=== PATIENT | female | born 1950 | race Caucasian/White ===

== ENCOUNTER 2016-08-09 22:54 | Observation (INO) | payer OTHER ==
[~2016-08-09] VITALS: Ht 157.5 cm; Wt 46.0 kg
[~2016-08-09 22:54] MED LIST: ADVAIR 250/501 DISK IH; ADVAIR HFA120 INHAL1 IH; ADVIL,NUPRIN,M200 MG PO; ADVIL200 M3 PO; AMOXICILLIN500 MG PO; AUGMENTIN875 MG PO; AZITHROMYCIN250 MG PO; Advair HFA 115/21 IH; BACTRIM,SEPT1 TABLET PO; CEFDINIR300 MG PO; COUGH MED; CYANOCOBALAM1000 MCG PO; DELTASONE20 M1 PO; DUONEB 2.5-0.5 M3 ML IH; DUREZOL 0.100 DROP/5 RIGHT EYE; ILEVRO1.7 ML RIGHT EYE; LEVAQUIN250 MG PO; LEVAQUIN500 MG PO; LEVOFLOXACIN750 MG PO; LOPRESSOR25 MG PO; Levaquin PO; MARTINIC1 EACH PO; METOPROLOL TART25 MG PO; MUCINEX1200 MG PO; MUCINEX600 MG PO; PREDNISONE10 MG PO; PREDNISONE20 MG PO; PREDNISONE50 MG PO; PROVENTIL HFA6.7 GM IH; PROVENTIL,2.5 MG/3 M IH; PROVENTIL17 GM IH; SPIRIVA RESPIMAT4 G1 IH; SPIRIVA RESPIMAT4 GM IH; SPIRIVA1 INHALATI IH; SYMBICORT60 INHALAT IH; THEOCHRON200 MG PO; Tums PO; VENTOLIN HFA18 GM IH; VITAMIN B12-FO1 EACH PO; VITAMIN D1000 INTUN PO; VITAMIN D2000 UNIT PO; VITAMIN D31000 UNIT PO; ZITHROMAX Z-PA250 MG PO; predniSONE PO
[2016-08-09 23:28] LABS: HEMATOCRIT 45.2 % (36.0-46.0); MCH 31.5 PG (29.0-34.0); MCV 95.6 FL (83-99); MEAN PLAT.VOLUME 9.7 uM^3 (9.5-12.4); PLATELET COUNT 187 K/uL (156-360); RBC DIS.WIDTH-CV 12.3 % (11.8-14.6); RED BLOOD COUNT 4.73 M/uL (3.80-5.20); WHITE BLOOD COUNT 12.1 K/uL (4.1-10.2)
[2016-08-09 23:46] LABS: CHLORIDE 105 mEq/L (99-109); POTASSIUM 4.1 mEq/L (3.7-5.4); SODIUM 143 mEq/L (136-147)
[2016-08-09 23:47] LABS: GLUCOSE 97 mg/dL (70-99)
[2016-08-09 23:49] LABS: ANION GAP 12 MEQ/L (2-14)
[2016-08-09 23:51] LABS: GFR ESTIMATE (CALCULATED) > 59 mL/min/; TROP-I INTERPRETATION NEGATIVE; TROPONIN-I 0.03 ng/mL (0.0-0.30)
[2016-08-09 23:52] LABS: UREA NITROGEN (BUN) 14 mg/dL (9-23)
[2016-08-10 00:03] LABS: BASE EXCESS 0.6 mEq/L (-3 to +3); BICARBONATE 27.8 mEq/L (22-26); CARBOXY HGB 1.9 % (0-5); METHEMOGLOBIN 1.1 % (0-1.5); PCO2 54 mm Hg (35-45); PO2 207 mm Hg (80-100); pH 7.32 (7.35-7.45)
[2016-08-10 00:04] LABS: COMMENTS - BLOOD GASES C+A+; DEVICE VENTILATOR; FI02 50 %; MODE SPONT-NIV; PEEP 5 CM/H20; PRES. SUPPORT 10 CM/H2O; SITE LR; TOTAL RESP RATE 14 resp/min
[2016-08-10 04:50] VITALS: BP 111/65
[2016-08-10 08:15] VITALS: BP 106/60
[2016-08-10] MEDS ORDERED: ADVAIR 250/501 DISK IH (09:19)
[2016-08-10 11:45] VITALS: BP 133/63
[2016-08-10 16:45] VITALS: BP 113/61
[2016-08-10 19:43] VITALS: BP 130/62
[2016-08-10 23:24] VITALS: BP 132/67
[2016-08-11 04:41] VITALS: BP 91/51
[2016-08-11 07:45] VITALS: BP 108/68
[2016-08-11 11:48] VITALS: BP 118/58
[2016-08-11] MEDS ORDERED: PREDNISONE10 MG PO (12:11)
[2016-08-11] MEDS ORDERED: AZITHROMYCIN500 M1 PO (12:11)
[2016-08-11] MEDS ORDERED: LEVAQUIN750 MG PO (12:11)
== END 2016-08-11 14:21 | disposition home or self-care (01) ==
LOC: EME 22:54 → EDOF 08-10 03:32 → 4EAST 08-10 03:32 → 5SOUTH 08-10 03:32 → 4EAST 08-10 04:41 → 5SOUTH 08-10 19:19
PROVIDERS: Emergency Medicine
PROC: 5A09357 Assistance with Respiratory Ventilation, Less than 24 Consecutive Hours, Continuous Positive Airway Pressure (ICD-10-PCS; principal; 2016-08-10)
DX: J96.21 Acute and chronic respiratory failure with hypoxia (principal); J44.1 Chronic obstructive pulmonary disease with (acute) exacerbation; J44.0 Chronic obstructive pulmonary disease with (acute) lower respiratory infection; J18.9 Pneumonia, unspecified organism; J20.9 Acute bronchitis, unspecified; Z99.81 Dependence on supplemental oxygen; R00.0 Tachycardia, unspecified; D69.6 Thrombocytopenia, unspecified; Z87.891 Personal history of nicotine dependence
CPT/HCPCS: 36600; 71010; 71275; 80048; 82803; 84484; 85027; 87040; 87070; 87205; 93005; 94002; 94640; 94640 76; 94799; 99202; 99281; 99285; G0378; J0696; J1644; J2930; J7050; J7644

== ENCOUNTER 2017-01-06 23:25 | Emergency (ER) | payer OTHER ==
[~2017-01-06] VITALS: Ht 157.5 cm; Wt 40.7 kg
[~2017-01-06 23:25] MED LIST changes: +AZITHROMYCIN500 M1 PO; +LEVAQUIN750 MG PO
[2017-01-07 00:12] LABS: EOSINOPHIL (%) 8.6 % (0-5); EOSINOPHIL COUNT 0.4 K/uL (0-0.3); IMMATURE GRANULOCYTE (%) 0.4 % (0.0-0.7); INSTRUMENT ABS NEUTROPHIL CT 3.2 K/uL; MCH 28.3 PG (29.0-34.0); MCHC 32.8 G/DL (30.0-36.0); MCV 86.3 FL (83-99); MEAN PLAT.VOLUME 10.3 uM^3 (9.5-12.4); MONOCYTE (%) 9.2 % (3-12); MONOCYTE COUNT 0.5 K/uL (0-0.8); NEUTROPHIL (%) 61.5 % (45-76); NEUTROPHIL COUNT 3.2 K/uL (1.8-6.4); PLATELET COUNT 157 K/uL (156-360); RBC DIS.WIDTH-CV 11.6 % (11.8-14.6); RBC DIS.WIDTH-SD 36.7 % (39-53); RED BLOOD COUNT 4.98 M/uL (3.80-5.20); WHITE BLOOD COUNT 5.1 K/uL (4.1-10.2)
[2017-01-07 00:17] LABS: INTER. NORMALIZED RATIO 1.1; PROTHROMBIN TIME 12.3 SEC (10.2-12.9)
[2017-01-07 00:20] LABS: PTT 29.3 SEC (25-37)
[2017-01-07 00:25] LABS: CHLORIDE 100 mEq/L (99-109); POTASSIUM 4.2 mEq/L (3.7-5.4); SODIUM 142 mEq/L (136-147)
[2017-01-07 00:27] LABS: GLUCOSE 99 mg/dL (70-99)
[2017-01-07 00:28] LABS: ANION GAP 10 MEQ/L (2-14)
[2017-01-07 00:31] LABS: GFR ESTIMATE (CALCULATED) > 59 mL/min/
[2017-01-07 00:32] LABS: TROP-I INTERPRETATION NEGATIVE; TROPONIN-I < 0.01 ng/mL (0.0-0.30); UREA NITROGEN (BUN) 8 mg/dL (9-23)
[2017-01-07] MEDS ORDERED: ZITHROMAX Z-PA250 MG PO (02:30)
[2017-01-07] MEDS ORDERED: PREDNISONE20 MG PO (02:30)
[2017-01-07] MEDS ORDERED: ALBUTEROL2.5 MG/3 M IH (02:30)
[2017-01-07] MEDS ORDERED: VENTOLIN HFA18 GM IH (02:30)
[2017-01-07 03:13] VITALS: BP 102/61
== END 2017-01-07 03:18 | disposition home or self-care (01) ==
LOC: EME → EDBD 23:25 → EME 23:25
PROVIDERS: Emergency Medicine
DX: J44.1 Chronic obstructive pulmonary disease with (acute) exacerbation (principal); Z99.81 Dependence on supplemental oxygen; Z87.01 Personal history of pneumonia (recurrent); Z87.891 Personal history of nicotine dependence
CPT/HCPCS: 71020; 80048; 84484; 85025; 85610; 85730; 93005; 94640; 99281; 99284; J2930; J7644

== ENCOUNTER 2017-01-12 12:42 | Inpatient (IN) | payer OTHER ==
[~2017-01-12] VITALS: Ht 157.5 cm; Wt 39.1 kg
[~2017-01-12 12:42] MED LIST changes: +ALBUTEROL2.5 MG/3 M IH
[2017-01-12 14:27] LABS: HEMATOCRIT 44.2 % (36.0-46.0); MCH 28.2 PG (29.0-34.0); MCHC 31.4 G/DL (30.0-36.0); MCV 89.7 FL (83-99); MEAN PLAT.VOLUME 9.6 uM^3 (9.5-12.4); PLATELET COUNT 173 K/uL (156-360); RBC DIS.WIDTH-CV 12.3 % (11.8-14.6); RBC DIS.WIDTH-SD 40.5 % (39-53); RED BLOOD COUNT 4.93 M/uL (3.80-5.20)
[2017-01-12 14:33] LABS: PROTHROMBIN TIME 11.1 SEC (10.2-12.9)
[2017-01-12 14:34] LABS: CHLORIDE 102 mEq/L (99-109); POTASSIUM 3.8 mEq/L (3.7-5.4); SODIUM 144 mEq/L (136-147)
[2017-01-12 14:36] LABS: GLUCOSE 90 mg/dL (70-99); PTT 27.1 SEC (25-37)
[2017-01-12 14:38] LABS: ANION GAP 7 MEQ/L (2-14)
[2017-01-12 14:40] LABS: GFR ESTIMATE (CALCULATED) > 59 mL/min/
[2017-01-12 14:41] LABS: UREA NITROGEN (BUN) 11 mg/dL (9-23)
[2017-01-12 14:47] LABS: TROP-I INTERPRETATION NEGATIVE; TROPONIN-I 0.03 ng/mL (0.0-0.30)
[2017-01-12 15:18] LABS: CARBON DIOXIDE (BICARBONATE) 37.7 MEQ/L (20-31)
[2017-01-12] MEDS ORDERED: SPIRIVA18 MCG IH (19:48)
[2017-01-12] MEDS ORDERED: PREDNISONE10 MG PO (19:49)
[2017-01-12] MEDS ORDERED: AZITHROMYCIN250 MG PO (19:50)
[2017-01-12 21:08] LABS: D-DIMER ELISA < 150.00 ng/mLDDU (<230)
[2017-01-12 21:15] VITALS: BP 120/76
[2017-01-12 21:39] VITALS: BP 120/76
[2017-01-12 23:30] VITALS: BP 120/76
[2017-01-13 03:26] VITALS: BP 99/61
[2017-01-13 07:07] LABS: HEMATOCRIT 42.3 % (36.0-46.0); MCH 29.7 PG (29.0-34.0); MCHC 33.6 G/DL (30.0-36.0); MCV 88.5 FL (83-99); PLATELET COUNT 152 K/uL (156-360); RBC DIS.WIDTH-CV 12.1 % (11.8-14.6); RBC DIS.WIDTH-SD 39.3 % (39-53); RED BLOOD COUNT 4.78 M/uL (3.80-5.20); WHITE BLOOD COUNT 3.4 K/uL (4.1-10.2)
[2017-01-13 07:30] VITALS: BP 120/71
[2017-01-13 07:36] LABS: ANION GAP 9 MEQ/L (2-14); CHLORIDE 99 MEQ/L (99-109); GFR ESTIMATE (CALCULATED) > 59 mL/min/; GLUCOSE 128 mg/dL (70-99); SAMPLE HEMOLYSIS CHECK 0; SAMPLE ICTERIC CHECK 0; SAMPLE LIPEMIA CHECK 0; SODIUM 140 MEQ/L (136-147); UREA NITROGEN (BUN) 17 mg/dL (9-23)
[2017-01-13 07:37] LABS: POTASSIUM 4.9 MEQ/L (3.7-5.4)
[2017-01-13 11:09] VITALS: BP 103/65
[2017-01-13 15:10] VITALS: BP 107/61
[2017-01-13 20:15] VITALS: BP 101/63
[2017-01-14 00:25] VITALS: BP 114/58
[2017-01-14 04:24] VITALS: BP 129/79
[2017-01-14 08:16] VITALS: BP 104/54
[2017-01-14] MEDS ORDERED: BENZONATATE100 MG PO (09:42)
[2017-01-14] MEDS ORDERED: PREDNISONE20 MG PO (09:43)
== END 2017-01-14 12:27 | disposition home or self-care (01) | DRG 189 ==
LOC: EME 12:42 → EDOF 20:22 → 3EAST 20:22 → ENRESERV 20:27 → 3EAST 21:11
PROVIDERS: Emergency Medicine; Hospitalist
PROC: 5A09357 Assistance with Respiratory Ventilation, Less than 24 Consecutive Hours, Continuous Positive Airway Pressure (ICD-10-PCS; principal; 2017-01-12)
DX: J96.22 Acute and chronic respiratory failure with hypercapnia (principal); J96.21 Acute and chronic respiratory failure with hypoxia; J44.1 Chronic obstructive pulmonary disease with (acute) exacerbation; J44.0 Chronic obstructive pulmonary disease with (acute) lower respiratory infection; Z99.81 Dependence on supplemental oxygen; J18.9 Pneumonia, unspecified organism; J20.9 Acute bronchitis, unspecified; Z87.891 Personal history of nicotine dependence; D69.6 Thrombocytopenia, unspecified; Z87.01 Personal history of pneumonia (recurrent)
CPT/HCPCS: 71020; 80048; 82803; 84484; 85027; 85379; 85610; 85730; 87070; 87205; 93005; 94002; 94640; 94640 76; 94644; 94799; 99202; 99281; 99285; J1644; J2920; J2930

== ENCOUNTER 2017-02-03 21:45 | Emergency (ER) | payer OTHER ==
[~2017-02-03] VITALS: Ht 157.5 cm; Wt 40.1 kg
[~2017-02-03 21:45] MED LIST changes: +BENZONATATE100 MG PO; +SPIRIVA18 MCG IH
[2017-02-03 22:20] LABS: HEMATOCRIT 42.2 % (36.0-46.0); MCH 29.1 PG (29.0-34.0); MCHC 32.2 G/DL (30.0-36.0); MCV 90.2 FL (83-99); MEAN PLAT.VOLUME 9.2 uM^3 (9.5-12.4); RBC DIS.WIDTH-CV 12.3 % (11.8-14.6); RBC DIS.WIDTH-SD 40.7 % (39-53); RED BLOOD COUNT 4.68 M/uL (3.80-5.20); WHITE BLOOD COUNT 5.4 K/uL (4.1-10.2)
[2017-02-03 22:21] LABS: PLATELET COUNT 204 K/uL (156-360)
[2017-02-03 22:34] LABS: CHLORIDE 101 mEq/L (99-109); POTASSIUM 3.9 mEq/L (3.7-5.4); SODIUM 142 mEq/L (136-147)
[2017-02-03 22:36] LABS: GLUCOSE 117 mg/dL (70-99)
[2017-02-03 22:37] LABS: ANION GAP 6 MEQ/L (2-14)
[2017-02-03 22:40] LABS: GFR ESTIMATE (CALCULATED) > 59 mL/min/
[2017-02-03 22:41] LABS: UREA NITROGEN (BUN) 9 mg/dL (9-23)
[2017-02-03] MEDS ORDERED: PREDNISONE50 MG PO (23:24)
[2017-02-04 00:12] VITALS: BP 101/73
== END 2017-02-04 00:13 | disposition home or self-care (01) ==
LOC: EME 21:45
PROVIDERS: Emergency Medicine
DX: J44.9 Chronic obstructive pulmonary disease, unspecified (principal); R51 Headache; Z87.891 Personal history of nicotine dependence
CPT/HCPCS: 71020; 80048; 85027; 94640; 99281; 99285; J7512; J7644

== ENCOUNTER 2017-05-11 11:26 | Inpatient (IN) | payer OTHER ==
[~2017-05-11] VITALS: Ht 157.5 cm; Wt 46.5 kg
[2017-05-11 13:14] LABS: CHLORIDE 98 mEq/L (99-109); EOSINOPHIL (%) 1.5 % (0-5); EOSINOPHIL COUNT 0.2 K/uL (0-0.3); HEMATOCRIT 44.6 % (36.0-46.0); IMMATURE GRANULOCYTE (%) 0.4 % (0.0-0.7); IMMATURE GRANULOCYTE COUNT 0.1 K/uL; INSTRUMENT ABS NEUTROPHIL CT 11.3 K/uL; LYMPHOCYTE COUNT 0.6 K/uL (1.0-2.8); MCH 29.9 PG (29.0-34.0); MCV 90.8 FL (83-99); MEAN PLAT.VOLUME 9.7 uM^3 (9.5-12.4); MONOCYTE (%) 5.6 % (3-12); MONOCYTE COUNT 0.7 K/uL (0-0.8); NEUTROPHIL (%) 87.4 % (45-76); NEUTROPHIL COUNT 11.3 K/uL (1.8-6.4); PLATELET COUNT 264 K/uL (156-360); POTASSIUM 4.1 mEq/L (3.7-5.4); RBC DIS.WIDTH-CV 11.6 % (11.8-14.6); RBC DIS.WIDTH-SD 38.6 % (39-53); RED BLOOD COUNT 4.91 M/uL (3.80-5.20); SODIUM 142 mEq/L (136-147); WHITE BLOOD COUNT 12.9 K/uL (4.1-10.2)
[2017-05-11 13:16] LABS: GLUCOSE 116 mg/dL (70-99)
[2017-05-11 13:17] LABS: ANION GAP 12 MEQ/L (2-14)
[2017-05-11 13:20] LABS: GFR ESTIMATE (CALCULATED) > 59 mL/min/
[2017-05-11 13:21] LABS: INTER. NORMALIZED RATIO 1.1; PROTHROMBIN TIME 12.9 SEC (10.2-12.9); UREA NITROGEN (BUN) 12 mg/dL (9-23)
[2017-05-11] MEDS ORDERED: ADVIL,NUPRIN,M200 MG PO (15:20)
[2017-05-11 22:28] VITALS: BP 85/53
[2017-05-11 23:11] VITALS: BP 85/53
[2017-05-11 23:27] VITALS: BP 84/51
[2017-05-12 03:27] VITALS: BP 92/55
[2017-05-12 07:43] LABS: ANION GAP 8 MEQ/L (2-14); CHLORIDE 100 MEQ/L (99-109); GFR ESTIMATE (CALCULATED) > 59 mL/min/; GLUCOSE 97 mg/dL (70-99); POTASSIUM 4.2 MEQ/L (3.7-5.4); SAMPLE HEMOLYSIS CHECK 0; SAMPLE ICTERIC CHECK 0; SAMPLE LIPEMIA CHECK 0; SODIUM 141 MEQ/L (136-147); UREA NITROGEN (BUN) 13 mg/dL (9-23)
[2017-05-12 07:59] LABS: HEMATOCRIT 36.9 % (36.0-46.0); MCV 93.9 FL (83-99)
[2017-05-12 08:22] VITALS: BP 88/44
[2017-05-12 12:11] VITALS: BP 102/59
[2017-05-12 15:51] VITALS: BP 101/55
[2017-05-12 20:00] VITALS: BP 98/58
[2017-05-13] VITALS (7 sets, daily range): BP systolic 98–112; BP diastolic 55–61
[2017-05-13 07:59] LABS: HEMATOCRIT 34.7 % (36.0-46.0); MCH 29.2 PG (29.0-34.0); MCHC 31.4 G/DL (30.0-36.0); RBC DIS.WIDTH-CV 11.9 % (11.8-14.6); RBC DIS.WIDTH-SD 39.8 % (39-53); WHITE BLOOD COUNT 10.1 K/uL (4.1-10.2)
[2017-05-13 08:01] LABS: RED BLOOD COUNT 3.73 M/uL (3.80-5.20)
[2017-05-13 08:13] LABS: MEAN PLAT.VOLUME 9.9 uM^3 (9.5-12.4); PLAT.SUFFICIENCY ADEQUATE
[2017-05-13 08:22] LABS: PLATELET COUNT 182 K/uL (156-360)
[2017-05-14 04:48] VITALS: BP 120/70
[2017-05-14 05:55] LABS: HEMATOCRIT 32.4 % (36.0-46.0); MCH 29.9 PG (29.0-34.0); MCHC 32.7 G/DL (30.0-36.0); MCV 91.3 FL (83-99); MEAN PLAT.VOLUME 10.2 uM^3 (9.5-12.4); PLATELET COUNT 205 K/uL (156-360); RBC DIS.WIDTH-CV 11.9 % (11.8-14.6); RBC DIS.WIDTH-SD 39.8 % (39-53); RED BLOOD COUNT 3.55 M/uL (3.80-5.20); WHITE BLOOD COUNT 9.3 K/uL (4.1-10.2)
[2017-05-14 06:28] LABS: ANION GAP 6 MEQ/L (2-14); CHLORIDE 97 MEQ/L (99-109); GFR ESTIMATE (CALCULATED) > 59 mL/min/; GLUCOSE 94 mg/dL (70-99); POTASSIUM 3.4 MEQ/L (3.7-5.4); SAMPLE HEMOLYSIS CHECK 0; SAMPLE ICTERIC CHECK 0; SAMPLE LIPEMIA CHECK 0; SODIUM 141 MEQ/L (136-147); UREA NITROGEN (BUN) 11 mg/dL (9-23)
[2017-05-14 09:13] VITALS: BP 142/62
[2017-05-14] MEDS ORDERED: FAMOTIDINE20 MG PO (11:47)
[2017-05-14] MEDS ORDERED: SENNA PLUS TAB1 EACH PO (11:47)
[2017-05-14] MEDS ORDERED: THERAGRAN1 TABLET PO (11:48)
[2017-05-14] MEDS ORDERED: BISAC-EVAC10 MG PR (11:49)
[2017-05-14 11:57] VITALS: BP 105/62
[2017-05-14] MEDS ORDERED: HYDROCODON-ACE1 EAC7 PO (12:10)
[2017-05-14 16:40] VITALS: BP 94/61
[2017-05-14 20:11] VITALS: BP 141/96
[2017-05-14 23:07] VITALS: BP 112/57
[2017-05-15 04:16] VITALS: BP 109/67
[2017-05-15 07:43] VITALS: BP 97/71
[2017-05-15 11:48] VITALS: BP 109/61
[2017-05-15 16:23] VITALS: BP 119/64
[2017-05-15 19:47] VITALS: BP 105/66
[2017-05-16 00:12] VITALS: BP 107/67
[2017-05-16 04:13] VITALS: BP 108/61
[2017-05-16 07:17] LABS: ANION GAP 7 MEQ/L (2-14); CHLORIDE 101 MEQ/L (99-109); GFR ESTIMATE (CALCULATED) > 59 mL/min/; GLUCOSE 110 mg/dL (70-99); SAMPLE HEMOLYSIS CHECK 1; SAMPLE ICTERIC CHECK 0; SAMPLE LIPEMIA CHECK 0; SODIUM 139 MEQ/L (136-147); UREA NITROGEN (BUN) 14 mg/dL (9-23)
[2017-05-16 07:19] LABS: POTASSIUM 5.2 MEQ/L (3.7-5.4)
[2017-05-16 08:29] VITALS: BP 121/64
[2017-05-16] MEDS ORDERED: DUONEB 2.5-0.5 M3 ML AEROSOL (10:59)
[2017-05-16] MEDS ORDERED: PREDNISONE20 MG PO (11:02)
[2017-05-16] MEDS ORDERED: HYDROCODON-ACE1 EAC7 PO (11:05)
[2017-05-16] MEDS ORDERED: LOVENOX40 MG/0.4 SC (11:12)
[2017-05-16 12:14] VITALS: BP 109/64
== END 2017-05-16 12:44 | DRG 469 ==
LOC: EME 11:26 → EDOF 16:04 → 3EAST 16:04 → ENRESERV 16:05 → 3EAST 22:17
PROVIDERS: Emergency Medicine; Hospitalist; Nurse Practitioner Adult Health; Orthopaedic Surgery
PROC: 0SRS0JZ Replacement of Left Hip Joint, Femoral Surface with Synthetic Substitute, Open Approach (ICD-10-PCS; principal; 2017-05-11)
DX: S72.002A Fracture of unspecified part of neck of left femur, initial encounter for closed fracture (principal); W01.0XXA Fall on same level from slipping, tripping and stumbling without subsequent striking against object, initial encounter; J96.21 Acute and chronic respiratory failure with hypoxia; J44.1 Chronic obstructive pulmonary disease with (acute) exacerbation; J98.11 Atelectasis; D64.9 Anemia, unspecified; R26.2 Difficulty in walking, not elsewhere classified; Z99.81 Dependence on supplemental oxygen; Z87.891 Personal history of nicotine dependence
CPT/HCPCS: 71010; 73501; 73502; 80048; 82272; 85014; 85018; 85025; 85027; 85610; 90686; 93005; 94640; 94640 76; 94760; 94799; 97530 GO; 97530 GP; 99202; 99281; 99285; J0131; J0690; J1170; J1650; J2250; J2270; J2405; J2930; S0028

== ENCOUNTER 2017-07-19 19:59 | Inpatient (IN) | payer OTHER ==
[~2017-07-19] VITALS: Ht 160 cm; Wt 37.3 kg
[~2017-07-19 19:59] MED LIST changes: +BISAC-EVAC10 MG PR; +DUONEB 2.5-0.5 M3 ML AEROSOL; +FAMOTIDINE20 MG PO; +HYDROCODON-ACE1 EAC7 PO; +LOVENOX40 MG/0.4 SC; +SENNA PLUS TAB1 EACH PO; -SPIRIVA18 MCG IH; +THERAGRAN1 TABLET PO
[2017-07-19 21:00] LABS: HEMATOCRIT 43.1 % (36.0-46.0); HEMOGLOBIN 14.1 G/DL (11.9-15.5); MCH 30.3 PG (29.0-34.0); MCHC 32.7 G/DL (30.0-36.0); MCV 92.5 FL (83-99); PLATELET COUNT 274 K/uL (156-360); RBC DIS.WIDTH-CV 12.3 % (11.8-14.6); RBC DIS.WIDTH-SD 41.9 % (39-53); RED BLOOD COUNT 4.66 M/uL (3.80-5.20); WHITE BLOOD COUNT 18.4 K/uL (4.1-10.2)
[2017-07-19 21:03] LABS: BASE EXCESS 8.1 mEq/L (-3 to +3); BICARBONATE 34.7 mEq/L (22-26); CARBOXY HGB 2.4 % (0-5); COMMENTS - BLOOD GASES A+C+; DEVICE VM; FI02 50 %; METHEMOGLOBIN 1.2 % (0-1.5); O2 FLOW 12 L/MIN; PCO2 56 mm Hg (35-45); PO2 74 mm Hg (80-100); SITE RR; TOTAL RESP RATE 25 resp/min
[2017-07-19 21:16] LABS: CHLORIDE 98 MEQ/L (99-109); POTASSIUM 4.4 MEQ/L (3.7-5.4); SODIUM 140 MEQ/L (136-147)
[2017-07-19 21:22] LABS: CREATININE 0.6 MG/DL (0.6-1.3); GFR ESTIMATE (CALCULATED) > 59 mL/min/; GLUCOSE 115 mg/dL (70-99); UREA NITROGEN (BUN) 11 mg/dL (9-23)
[2017-07-19 21:22] LABS: BASOPHIL (%) 0.2 % (0-1); EOSINOPHIL (%) 0 % (0-5); HEMATOCRIT 41.3 % (36.0-46.0); HEMOGLOBIN 13.5 G/DL (11.9-15.5); IMMATURE GRANULOCYTE (%) 0.5 % (0.0-0.7); LYMPHOCYTE (%) 2.9 % (15-42); LYMPHOCYTE COUNT 0.5 K/uL (1.0-2.8); MCHC 32.7 G/DL (30.0-36.0); MCV 91.8 FL (83-99); MONOCYTE (%) 5.4 % (3-12); NEUTROPHIL COUNT 16.2 K/uL (1.8-6.4); PLATELET COUNT 261 K/uL (156-360); RBC DIS.WIDTH-CV 12.4 % (11.8-14.6); RBC DIS.WIDTH-SD 41.9 % (39-53); WHITE BLOOD COUNT 17.7 K/uL (4.1-10.2)
[2017-07-19 21:44] LABS: ALBUMIN 3.5 G/DL (3.2-4.8); DIRECT BILIRUBIN 0.1 mg/dL (0.0-0.3); TOTAL BILIRUBIN 0.4 MG/DL (0.0-1.0)
[2017-07-19 22:19] LABS: ALKALINE PHOSPHATASE 73 IU/L (3-129); ALT (GPT) 9 IU/L (3-49); AST (GOT) 13 IU/L (2-34); LIPASE < 3.0 U/L (1.0-51.0); TOTAL PROTEIN 6.9 G/DL (6.4-8.3)
[2017-07-20] VITALS (7 sets, daily range): BP systolic 101–114; BP diastolic 57–64
[2017-07-20] MEDS ORDERED: MULTI COMPLETE1 EACH PO (00:23)
[2017-07-20] MEDS ORDERED: VENTOLIN HFA18 GM IH (00:23)
[2017-07-20 05:59] LABS: HEMATOCRIT 39.3 % (36.0-46.0); HEMOGLOBIN 12.5 G/DL (11.9-15.5); MCH 29.1 PG (29.0-34.0); MCHC 31.8 G/DL (30.0-36.0); MCV 91.4 FL (83-99); PLATELET COUNT 251 K/uL (156-360); RBC DIS.WIDTH-CV 12.5 % (11.8-14.6); RBC DIS.WIDTH-SD 41.7 % (39-53); WHITE BLOOD COUNT 21.3 K/uL (4.1-10.2)
[2017-07-20 06:24] LABS: ALBUMIN 3.3 G/DL (3.2-4.8); ALKALINE PHOSPHATASE 61 IU/L (3-129); ALT (GPT) 8 IU/L (3-49); AST (GOT) 14 IU/L (2-34); CHLORIDE 101 MEQ/L (99-109); CREATININE 0.6 MG/DL (0.6-1.3); GFR ESTIMATE (CALCULATED) > 59 mL/min/; GLUCOSE 141 mg/dL (70-99); POTASSIUM 4.8 MEQ/L (3.7-5.4); SODIUM 140 MEQ/L (136-147); TOTAL BILIRUBIN 0.4 MG/DL (0.0-1.0); TOTAL PROTEIN 6.4 G/DL (6.4-8.3); UREA NITROGEN (BUN) 11 mg/dL (9-23)
[2017-07-20 15:28] LABS: APPEARANCE CLEAR ((CLEAR)); BILIRUBIN NEGATIVE; BLOOD SMALL; COLOR YELLOW ((YELLOW)); GLUCOSE (STRIP) NEGATIVE; KETONES NEGATIVE; LEUKOCYTES NEGATIVE; NITRITE NEGATIVE; PROTEIN (STRIP) NEGATIVE; SPECIFIC GRAVITY 1.014 (1.000-1.030); UROBILINOGEN 0.2 MG/DL (0.2-1.0)
[2017-07-20 15:43] LABS: BACTERIA NONE SEEN /HPF; EPITHELIAL CELLS NONE SEEN /HPF; MUCUS TRACE /LPF; RED BLOOD CELLS 0-5 /HPF (0-5); UCUL ADDED? NO; WHITE BLOOD CELLS 0-5 /HPF (0-5)
[2017-07-21 03:25] VITALS: BP 108/60
[2017-07-21 07:29] VITALS: BP 101/59
[2017-07-21 11:48] VITALS: BP 106/50
[2017-07-21 15:43] VITALS: BP 114/57
[2017-07-22 00:03] VITALS: BP 111/58
[2017-07-22 08:00] VITALS: BP 124/57
[2017-07-22] MEDS ORDERED: LEVOFLOXACIN750 MG PO (11:53)
[2017-07-22] MEDS ORDERED: PREDNISONE5 MG PO (11:54)
[2017-07-22 12:00] VITALS: BP 104/61
== END 2017-07-22 13:30 | disposition home or self-care (01) | DRG 190 ==
LOC: EME → EDBD 19:59 → EDOF 23:31 → 2EASTP 23:31 → ENRESERV 23:36 → 2EASTP 07-20 01:06
PROVIDERS: Emergency Medicine; Hospitalist; Internal Medicine
DX: J44.1 Chronic obstructive pulmonary disease with (acute) exacerbation (principal); R65.11 Systemic inflammatory response syndrome (SIRS) of non-infectious origin with acute organ dysfunction; J96.21 Acute and chronic respiratory failure with hypoxia; J44.0 Chronic obstructive pulmonary disease with (acute) lower respiratory infection; K21.9 Gastro-esophageal reflux disease without esophagitis; J40 Bronchitis, not specified as acute or chronic; Z96.642 Presence of left artificial hip joint; Z99.81 Dependence on supplemental oxygen; Z68.1 Body mass index [BMI] 19.9 or less, adult; J20.9 Acute bronchitis, unspecified; Z91.19 Patient's noncompliance with other medical treatment and regimen
CPT/HCPCS: 36600; 71046; 80048; 80053; 80076; 81003; 82803; 83605; 83690; 85025; 85027; 87040; 87070; 87205; 87502; 93005; 94640; 94640 76; 94799; 99202; 99281; 99284; J1644; J1956; J2930; J7512

== ENCOUNTER 2017-10-15 18:38 | Inpatient (IN) | payer OTHER ==
[~2017-10-15] VITALS: Ht 157.5 cm; Wt 39.4 kg
[~2017-10-15 18:38] MED LIST changes: +MULTI COMPLETE1 EACH PO; +PREDNISONE5 MG PO
[2017-10-15 19:02] LABS: BASOPHIL (%) 1.5 % (0-1); BASOPHIL COUNT 0.1 K/uL (0-0.1); EOSINOPHIL (%) 7.5 % (0-5); EOSINOPHIL COUNT 0.4 K/uL (0-0.3); HEMATOCRIT 47.5 % (36.0-46.0); HEMOGLOBIN 15.2 G/DL (11.9-15.5); IMMATURE GRANULOCYTE (%) 0.2 % (0.0-0.7); LYMPHOCYTE (%) 16.2 % (15-42); LYMPHOCYTE COUNT 0.9 K/uL (1.0-2.8); MCH 29.7 PG (29.0-34.0); MONOCYTE (%) 12.3 % (3-12); MONOCYTE COUNT 0.7 K/uL (0-0.8); NEUTROPHIL (%) 62.3 % (45-76); NEUTROPHIL COUNT 3.3 K/uL (1.8-6.4); PLATELET COUNT 191 K/uL (156-360); RBC DIS.WIDTH-CV 11.7 % (11.8-14.6); RED BLOOD COUNT 5.11 M/uL (3.80-5.20); WHITE BLOOD COUNT 5.3 K/uL (4.1-10.2)
[2017-10-15 19:10] LABS: ALBUMIN 4.1 g/dL (3.2-4.8); CHLORIDE 94 mEq/L (99-109); POTASSIUM 4.5 mEq/L (3.7-5.4); SODIUM 141 mEq/L (136-147)
[2017-10-15 19:12] LABS: GLUCOSE 103 mg/dL (70-99)
[2017-10-15 19:14] LABS: TOTAL BILIRUBIN 0.4 mg/dL (0.0-1.0)
[2017-10-15 19:16] LABS: ALKALINE PHOSPHATASE 71 IU/L (3-129); CREATININE 0.7 mg/dL (0.6-1.3); GFR ESTIMATE (CALCULATED) > 59 mL/min/
[2017-10-15 19:17] LABS: UREA NITROGEN (BUN) 15 mg/dL (9-23)
[2017-10-15 19:18] LABS: AST (GOT) 16 IU/L (2-34)
[2017-10-15 19:19] LABS: ALT (GPT) 11 IU/L (3-49)
[2017-10-15 19:24] LABS: TROP-I INTERPRETATION NEGATIVE; TROPONIN-I < 0.01 ng/mL (0.0-0.30)
[2017-10-15 19:39] LABS: BASE EXCESS 6.2 mEq/L (-3 to +3); CARBOXY HGB 2.1 % (0-5); COMMENTS - BLOOD GASES A+C+; DEVICE NC; METHEMOGLOBIN 1.1 % (0-1.5); O2 FLOW 2 L/MIN; PCO2 107 mm Hg (35-45); PO2 98 mm Hg (80-100); SITE LR; TOTAL RESP RATE 24 resp/min; pH 7.17 (7.35-7.45)
[2017-10-15 20:42] LABS: BASE EXCESS 4.2 mEq/L (-3 to +3); BICARBONATE 36.2 mEq/L (22-26); CARBOXY HGB 1.9 % (0-5); METHEMOGLOBIN 1.5 % (0-1.5)
[2017-10-15 20:45] LABS: COMMENTS - BLOOD GASES A+C+; DEVICE N/V 840; FI02 40 %; MODE SPONT; PCO2 97 mm Hg (35-45); PEEP 5 CM/H20; PO2 189 mm Hg (80-100); PRES. SUPPORT 15 CM/H2O; SITE RR; TOTAL RESP RATE 22 resp/min; pH 7.18 (7.35-7.45)
[2017-10-15 21:15] VITALS: BP 99/67
[2017-10-15 21:30] VITALS: BP 110/59
[2017-10-15] MEDS ORDERED: SPIRIVA RESPIMAT4 G1 IH (21:42)
[2017-10-15] MEDS ORDERED: ADVAIR 250/501 DISK IH (21:42)
[2017-10-15] MEDS ORDERED: VENTOLIN HFA18 GM IH (21:43)
[2017-10-15 22:00] VITALS: BP 107/57
[2017-10-15 22:19] LABS: CARBOXY HGB 2.7 % (0-5); COMMENTS - BLOOD GASES C+; DEVICE NC; METHEMOGLOBIN 1.5 % (0-1.5); O2 FLOW 3 L/MIN; PCO2 > 122 mm Hg (35-45); PO2 95 mm Hg (80-100); SITE LR; pH 7.09 (7.35-7.45)
[2017-10-15 23:00] VITALS: BP 99/61
[2017-10-16] VITALS (22 sets, daily range): BP systolic 87–121; BP diastolic 55–70
[2017-10-16 05:49] LABS: HEMATOCRIT 44.1 % (36.0-46.0); MCH 28.6 PG (29.0-34.0); MCHC 29.9 G/DL (30.0-36.0); MCV 95.7 FL (83-99); PLATELET COUNT 169 K/uL (156-360); RBC DIS.WIDTH-CV 11.8 % (11.8-14.6); RBC DIS.WIDTH-SD 41.2 % (39-53); RED BLOOD COUNT 4.61 M/uL (3.80-5.20)
[2017-10-16 05:52] LABS: HEMOGLOBIN 13.2 G/DL (11.9-15.5)
[2017-10-16 06:15] LABS: CHLORIDE 99 MEQ/L (99-109); CREATININE 0.6 MG/DL (0.6-1.3); GFR ESTIMATE (CALCULATED) > 59 mL/min/; GLUCOSE 117 mg/dL (70-99); POTASSIUM 4.8 MEQ/L (3.7-5.4); SODIUM 140 MEQ/L (136-147); UREA NITROGEN (BUN) 18 mg/dL (9-23)
[2017-10-16 06:33] LABS: BASE EXCESS 5.9 mEq/L (-3 to +3); BICARBONATE 38.5 mEq/L (22-26); CARBOXY HGB 2.4 % (0-5); METHEMOGLOBIN 1.5 % (0-1.5); PO2 110 mm Hg (80-100)
[2017-10-16 06:34] LABS: COMMENTS - BLOOD GASES C+; DEVICE NC; O2 FLOW 4 L/MIN; PCO2 108 mm Hg (35-45); SITE LR; pH 7.16 (7.35-7.45)
[2017-10-16 15:43] LABS: BASE EXCESS 7.6 mEq/L (-3 to +3); BICARBONATE 38.1 mEq/L (22-26); CARBOXY HGB 2.5 % (0-5); DEVICE VENTURI MASK; FI02 50 %; METHEMOGLOBIN 1.4 % (0-1.5); PCO2 89 mm Hg (35-45); PO2 78 mm Hg (80-100); SITE RR; TOTAL RESP RATE 24 resp/min
[2017-10-16 15:44] LABS: pH 7.24 (7.35-7.45)
[2017-10-17] VITALS (13 sets, daily range): BP systolic 92–113; BP diastolic 54–69
[2017-10-17 05:35] LABS: HEMATOCRIT 36.6 % (36.0-46.0); HEMOGLOBIN 11.5 G/DL (11.9-15.5); MCH 29.6 PG (29.0-34.0); MCHC 31.4 G/DL (30.0-36.0); MCV 94.3 FL (83-99); PLATELET COUNT 123 K/uL (156-360); RBC DIS.WIDTH-CV 11.9 % (11.8-14.6); RBC DIS.WIDTH-SD 40.9 % (39-53); RED BLOOD COUNT 3.88 M/uL (3.80-5.20)
[2017-10-17 05:58] LABS: CHLORIDE 102 MEQ/L (99-109); CREATININE 0.4 MG/DL (0.6-1.3); GFR ESTIMATE (CALCULATED) > 59 mL/min/; GLUCOSE 107 mg/dL (70-99); POTASSIUM 3.9 MEQ/L (3.7-5.4); SODIUM 142 MEQ/L (136-147); UREA NITROGEN (BUN) 15 mg/dL (9-23)
[2017-10-17 06:07] LABS: BASE EXCESS 8.8 mEq/L (-3 to +3); CARBOXY HGB 2.1 % (0-5); DEVICE VM; FI02 40 %; METHEMOGLOBIN 1.6 % (0-1.5); PCO2 79 mm Hg (35-45); PO2 84 mm Hg (80-100); SITE LB; TOTAL RESP RATE 18 resp/min; pH 7.29 (7.35-7.45)
[2017-10-18 05:46] LABS: HEMATOCRIT 36.5 % (36.0-46.0); HEMOGLOBIN 11.7 G/DL (11.9-15.5); MCH 29.7 PG (29.0-34.0); MCHC 32.1 G/DL (30.0-36.0); MCV 92.6 FL (83-99); PLATELET COUNT 123 K/uL (156-360); RBC DIS.WIDTH-CV 11.9 % (11.8-14.6); RED BLOOD COUNT 3.94 M/uL (3.80-5.20); WHITE BLOOD COUNT 7.1 K/uL (4.1-10.2)
[2017-10-18 06:14] LABS: CHLORIDE 105 MEQ/L (99-109); CREATININE 0.4 MG/DL (0.6-1.3); GFR ESTIMATE (CALCULATED) > 59 mL/min/; GLUCOSE 119 mg/dL (70-99); POTASSIUM 3.4 MEQ/L (3.7-5.4); SODIUM 146 MEQ/L (136-147); UREA NITROGEN (BUN) 18 mg/dL (9-23)
[2017-10-18 07:15] LABS: BASE EXCESS 10.8 mEq/L (-3 to +3); BICARBONATE 39.7 mEq/L (22-26); CARBOXY HGB 1.7 % (0-5); COMMENTS - BLOOD GASES C+; DEVICE NASCAN; METHEMOGLOBIN 1.2 % (0-1.5); O2 FLOW 3 L/MIN; PCO2 77 mm Hg (35-45); PO2 86 mm Hg (80-100); SITE LEFT BRACH; TOTAL RESP RATE 19 resp/min; pH 7.32 (7.35-7.45)
[2017-10-18 07:47] VITALS: BP 128/63
[2017-10-18 16:43] VITALS: BP 142/81
[2017-10-18 23:35] VITALS: BP 124/68
[2017-10-18 23:40] VITALS: BP 124/68
[2017-10-19 05:50] LABS: BASOPHIL (%) 0 % (0-1); EOSINOPHIL (%) 0 % (0-5); HEMATOCRIT 38.4 % (36.0-46.0); HEMOGLOBIN 12.3 G/DL (11.9-15.5); IMMATURE GRANULOCYTE (%) 0.3 % (0.0-0.7); LYMPHOCYTE (%) 3.9 % (15-42); LYMPHOCYTE COUNT 0.2 K/uL (1.0-2.8); MCH 29.4 PG (29.0-34.0); MCV 91.6 FL (83-99); MONOCYTE COUNT 0.3 K/uL (0-0.8); NEUTROPHIL (%) 90.8 % (45-76); NEUTROPHIL COUNT 5.6 K/uL (1.8-6.4); PLATELET COUNT 125 K/uL (156-360); RBC DIS.WIDTH-CV 11.9 % (11.8-14.6); RBC DIS.WIDTH-SD 39.8 % (39-53); RED BLOOD COUNT 4.19 M/uL (3.80-5.20); WHITE BLOOD COUNT 6.2 K/uL (4.1-10.2)
[2017-10-19 06:39] LABS: CHLORIDE 97 MEQ/L (99-109); CREATININE 0.6 MG/DL (0.6-1.3); GFR ESTIMATE (CALCULATED) > 59 mL/min/; GLUCOSE 119 mg/dL (70-99); POTASSIUM 3.5 MEQ/L (3.7-5.4); SODIUM 147 MEQ/L (136-147); UREA NITROGEN (BUN) 12 mg/dL (9-23)
[2017-10-19 06:45] LABS: CARBON DIOXIDE (BICARBONATE) > 40.0 MEQ/L (20-31)
[2017-10-19 07:39] VITALS: BP 134/70
[2017-10-19 16:14] VITALS: BP 131/70
[2017-10-19 23:17] VITALS: BP 132/75
[2017-10-20 08:13] LABS: BASE EXCESS 23.2 mEq/L (-3 to +3); PCO2 77 mm Hg (35-45)
[2017-10-20 08:14] VITALS: BP 132/63
[2017-10-20 08:15] LABS: BICARBONATE 52.3 mEq/L (22-26); COMMENTS - BLOOD GASES A+C+; DEVICE NC; MECHANICAL RATE 13 resp/min; O2 FLOW 2 L/MIN; PO2 41 mm Hg (80-100); SITE RR; pH 7.44 (7.35-7.45)
[2017-10-20 08:31] LABS: HEMATOCRIT 44.4 % (36.0-46.0); HEMOGLOBIN 13.9 G/DL (11.9-15.5); MCHC 31.3 G/DL (30.0-36.0); MCV 92.5 FL (83-99); PLATELET COUNT 128 K/uL (156-360); RBC DIS.WIDTH-CV 11.9 % (11.8-14.6); RBC DIS.WIDTH-SD 40.8 % (39-53); WHITE BLOOD COUNT 5.4 K/uL (4.1-10.2)
[2017-10-20 09:16] LABS: CHLORIDE 96 MEQ/L (99-109); CREATININE 0.7 MG/DL (0.6-1.3); GFR ESTIMATE (CALCULATED) > 59 mL/min/; GLUCOSE 152 mg/dL (70-99); POTASSIUM 3.6 MEQ/L (3.7-5.4); SODIUM 148 MEQ/L (136-147); UREA NITROGEN (BUN) 12 mg/dL (9-23)
[2017-10-20 09:20] LABS: CARBON DIOXIDE (BICARBONATE) > 40.0 MEQ/L (20-31)
[2017-10-20 15:00] VITALS: BP 132/74
[2017-10-21 01:07] VITALS: BP 136/67
[2017-10-21 07:11] LABS: CHLORIDE 100 MEQ/L (99-109); CREATININE 0.5 MG/DL (0.6-1.3); GFR ESTIMATE (CALCULATED) > 59 mL/min/; GLUCOSE 117 mg/dL (70-99); SODIUM 147 MEQ/L (136-147); UREA NITROGEN (BUN) 16 mg/dL (9-23)
[2017-10-21 07:14] LABS: CARBON DIOXIDE (BICARBONATE) > 40.0 MEQ/L (20-31)
[2017-10-21 08:00] VITALS: BP 134/65
[2017-10-21] MEDS ORDERED: THEOPHYLLINE400 MG PO (10:58)
[2017-10-21] MEDS ORDERED: CEFTIN500 MG PO (10:59)
[2017-10-21] MEDS ORDERED: PREDNISONE10 MG PO (11:00)
== END 2017-10-21 14:40 | disposition home health service (06) | DRG 190 ==
LOC: EME 18:38 → EDOF 20:14 → 4WEST 20:14 → ENRESERV 20:36 → 4WEST 21:08 → ENRESERV 10-17 13:52 → 5EAST 10-17 15:46 → ENPENDDIS 10-21 → 5EAST 10-21 14:40
PROVIDERS: Emergency Medicine; Hospitalist; Internal Medicine Pulmonary Disease; Physician Assistant; Surgery
PROC: 5A09357 Assistance with Respiratory Ventilation, Less than 24 Consecutive Hours, Continuous Positive Airway Pressure (ICD-10-PCS; principal; 2017-10-15)
DX: J44.1 Chronic obstructive pulmonary disease with (acute) exacerbation (principal); J96.22 Acute and chronic respiratory failure with hypercapnia; J96.21 Acute and chronic respiratory failure with hypoxia; J20.9 Acute bronchitis, unspecified; J44.0 Chronic obstructive pulmonary disease with (acute) lower respiratory infection; E87.2 Acidosis; Z99.81 Dependence on supplemental oxygen; R64 Cachexia; Z68.1 Body mass index [BMI] 19.9 or less, adult; Z66 Do not resuscitate; J02.9 Acute pharyngitis, unspecified; H93.19 Tinnitus, unspecified ear; F41.9 Anxiety disorder, unspecified; Z91.19 Patient's noncompliance with other medical treatment and regimen; Z87.01 Personal history of pneumonia (recurrent); Z87.891 Personal history of nicotine dependence; Z96.642 Presence of left artificial hip joint; Z82.5 Family history of asthma and other chronic lower respiratory diseases
CPT/HCPCS: 36600; 71045; 80048; 80053; 80198; 82306; 82803; 83605; 83735; 83880; 84484; 85025; 85027; 87040; 87641; 93005; 94002; 94640; 94640 76; 94760; 94799; 99202; 99281; 99285; J0456; J0696; J1644; J1956; J2405; J2920; J2930; J7030; S0028

== ENCOUNTER 2017-10-27 12:17 | Emergency (ER) | payer OTHER ==
[~2017-10-27] VITALS: Ht 157.5 cm; Wt 35.4 kg
[~2017-10-27 12:17] MED LIST changes: +CEFTIN500 MG PO; +THEOPHYLLINE400 MG PO
[2017-10-27] MEDS ORDERED: PERCOCET 5/31 TABLET PO (16:25)
[2017-10-27 16:31] VITALS: BP 130/80
[2017-11-02] MEDS ORDERED: THEOPHYLLINE400 MG PO (10:54)
== END 2017-10-27 16:51 | disposition home or self-care (01) ==
LOC: EME 12:17
PROC: 0PSHXZZ Reposition Right Radius, External Approach (ICD-10-PCS; principal; 2017-10-27)
DX: S52.501A Unspecified fracture of the lower end of right radius, initial encounter for closed fracture (principal); S52.691A Other fracture of lower end of right ulna, initial encounter for closed fracture; W19.XXXA Unspecified fall, initial encounter; J44.9 Chronic obstructive pulmonary disease, unspecified; Z87.891 Personal history of nicotine dependence
CPT/HCPCS: 73110; 99281; 99284; S0020

== ENCOUNTER 2017-11-05 09:13 | Day surgery (SDC) | payer OTHER ==
[~2017-11-05] VITALS: Ht 157.5 cm; Wt 39.0 kg
[~2017-11-05 09:13] MED LIST changes: +PERCOCET 5/31 TABLET PO
[2017-11-05 09:37] VITALS: BP 130/73
[2017-11-05 15:05] VITALS: BP 127/61
[2017-11-05 16:05] VITALS: BP 112/57
== END 2017-11-05 16:35 | disposition home or self-care (01) ==
LOC: SDC 09:13
PROC: 0PSH04Z Reposition Right Radius with Internal Fixation Device, Open Approach (ICD-10-PCS; principal; 2017-11-05)
DX: S52.531A Colles' fracture of right radius, initial encounter for closed fracture (principal); J44.9 Chronic obstructive pulmonary disease, unspecified; Z79.52 Long term (current) use of systemic steroids; W19.XXXA Unspecified fall, initial encounter; Y93.9 Activity, unspecified; Y92.002 Bathroom of unspecified non-institutional (private) residence as the place of occurrence of the external cause
CPT/HCPCS: 73110; 76000; 94640; C1713; J0330; J0690; J1100; J1170; J2405; J3010; S0020

== ENCOUNTER 2017-11-06 16:25 | Emergency (ER) | payer OTHER ==
[~2017-11-06] VITALS: Ht 157.5 cm; Wt 39.0 kg
[2017-11-06 18:10] VITALS: BP 108/63
== END 2017-11-06 18:11 | disposition home or self-care (01) ==
LOC: EME 16:25
DX: L76.22 Postprocedural hemorrhage of skin and subcutaneous tissue following other procedure (principal); J44.9 Chronic obstructive pulmonary disease, unspecified; H26.9 Unspecified cataract; Z87.891 Personal history of nicotine dependence; Z96.642 Presence of left artificial hip joint; Z87.01 Personal history of pneumonia (recurrent); Z79.51 Long term (current) use of inhaled steroids
CPT/HCPCS: 99281; 99284

== ENCOUNTER 2018-01-25 11:16 | Emergency (ER) | payer OTHER ==
[~2018-01-25] VITALS: Ht 157.5 cm; Wt 37.6 kg
[2018-01-25 12:27] LABS: BASOPHIL (%) 0.7 % (0-1); BASOPHIL COUNT 0.1 K/uL (0-0.1); EOSINOPHIL (%) 16.9 % (0-5); EOSINOPHIL COUNT 1.2 K/uL (0-0.3); HEMATOCRIT 45.8 % (36.0-46.0); HEMOGLOBIN 14.4 G/DL (11.9-15.5); IMMATURE GRANULOCYTE (%) 0.1 % (0.0-0.7); LYMPHOCYTE COUNT 1.4 K/uL (1.0-2.8); MCH 30.1 PG (29.0-34.0); MCHC 31.4 G/DL (30.0-36.0); MCV 95.6 FL (83-99); MONOCYTE (%) 8.4 % (3-12); MONOCYTE COUNT 0.6 K/uL (0-0.8); NEUTROPHIL (%) 52.9 % (45-76); NEUTROPHIL COUNT 3.6 K/uL (1.8-6.4); PLATELET COUNT 161 K/uL (156-360); RBC DIS.WIDTH-CV 11.5 % (11.8-14.6); RBC DIS.WIDTH-SD 40.8 % (39-53); RED BLOOD COUNT 4.79 M/uL (3.80-5.20); WHITE BLOOD COUNT 6.8 K/uL (4.1-10.2)
[2018-01-25 12:34] LABS: INTER. NORMALIZED RATIO 0.9
[2018-01-25 12:37] LABS: CHLORIDE 96 mEq/L (99-109); PTT 25.1 SEC (25-37); SODIUM 143 mEq/L (136-147)
[2018-01-25 12:39] LABS: GLUCOSE 92 mg/dL (70-99)
[2018-01-25 12:43] LABS: CREATININE 0.7 mg/dL (0.6-1.3); GFR ESTIMATE (CALCULATED) > 59 mL/min/
[2018-01-25 12:44] LABS: UREA NITROGEN (BUN) 10 mg/dL (9-23)
[2018-01-25 12:50] LABS: TROP-I INTERPRETATION NEGATIVE; TROPONIN-I < 0.01 ng/mL (0.0-0.30)
[2018-01-25] MEDS ORDERED: PREDNISONE50 MG PO (13:07)
[2018-01-25] MEDS ORDERED: ZITHROMAX Z-PA250 MG PO (13:07)
[2018-01-25 13:31] VITALS: BP 112/80
== END 2018-01-25 14:23 | disposition home or self-care (01) ==
LOC: EME 11:16
PROVIDERS: Emergency Medicine
DX: J44.1 Chronic obstructive pulmonary disease with (acute) exacerbation (principal); J44.0 Chronic obstructive pulmonary disease with (acute) lower respiratory infection; J20.9 Acute bronchitis, unspecified; Z87.891 Personal history of nicotine dependence; Z96.642 Presence of left artificial hip joint
CPT/HCPCS: 71045; 80048; 84484; 85025; 85379; 85610; 85730; 93005; 99281; 99285; J2930; J7030